=== PATIENT | female | born 1980 | race Caucasian/White ===

== ENCOUNTER 2022-02-06 09:10 | Outpatient (CLI) | payer OTHER, SELFPAY ==
[2022-02-06 14:24] LABS: Chloride* 106 mmol/L (96-114); Potassium* 4.3 mmol/L (3.6-5.1); Sodium* 139 mmol/L (135-149)
[2022-02-06 14:26] LABS: Cholesterol* 184 mg/dL (90-199)
[2022-02-06 14:27] LABS: Blood Urea Nitrogen* 14 mg/dL (5-24); Carbon Dioxide* 22 mmol/L (20-32); Creatinine* 0.7 mg/dL (0.5-1.5); Estimated Glomerular Filt Rate 111 ml/min; Glucose* 84 mg/dL (60-115)
[2022-02-06 14:28] LABS: Calcium* 9.2 mg/dL (8.4-10.6); HDL Cholesterol* 49 mg/dL (>=50); LDL Cholesterol Calculated 116 mg/dL (<100); Triglycerides* 94 mg/dL (40-149)
== END 2022-02-06 09:11 | disposition home or self-care (01) ==
PROVIDERS: PCP Family Medicine; Visit Provider Family Medicine
DX: Z01.419 Encounter for gynecological examination (general) (routine) without abnormal findings (principal); D56.9 Thalassemia, unspecified; K21.9 Gastro-esophageal reflux disease without esophagitis; Z13.6 Encounter for screening for cardiovascular disorders
CPT/HCPCS: 80048; 80061

== ENCOUNTER 2022-04-28 16:46 | Emergency (ER) | payer OTHER, SELFPAY ==
--- NOTE | 2022-04-28 18:54 | ED.NURSE ---
pt declined to be seen by MD. signed form.
== END 2022-04-28 19:09 | disposition left against medical advice (07) ==
LOC: ED 19:04
PROVIDERS: PCP Family Medicine
DX: Z53.21 Procedure and treatment not carried out due to patient leaving prior to being seen by health care provider (principal)

== ENCOUNTER 2022-08-05 08:32 | Outpatient (CLI) | payer OTHER, SELFPAY ==
--- NOTE | 2022-08-05 09:15 | CRLHL7_ITS ---
For Patients: As a result of the Century Cures Act, medical imaging exams and procedure reports are released immediately into your electronic medical record. You may view this report before your referring provider. If you have questions, please contact your health care provider. BILATERAL SCREENING MAMMOGRAM WITH COMPUTER-AIDED DETECTION AND TOMOSYNTHESIS TECHNIQUE: CC and MLO views were obtained. These mammographic images have been obtained using full-field digital technique. These mammographic images were interpreted with the benefit of computer-aided detection. Breast Tomosynthesis was used in this interpretation. COMPARISON FILM: 04/24/21. FINDINGS: The breasts are almost entirely fatty IMPRESSION: There is no radiographic evidence for malignancy. ASSESSMENT: BI-RADS Category 1: Negative RECOMMENDATION: Routine screening mammogram in 1 year. A lay language report of this examination will be provided to the patient. Axel Barfield M.D. Diagnostic Radiologist [email or web address] BIPIN/Dictated by: Axel Barfield MD @ 08/05/2022 12:24:00 PM (Electronically Signed)
== END 2022-08-05 08:33 | disposition home or self-care (01) ==
LOC: MAMMO 08:35
PROVIDERS: PCP Family Medicine; Visit Provider Family Medicine
DX: Z12.31 Encounter for screening mammogram for malignant neoplasm of breast (principal)
CPT/HCPCS: 77063; 77067

== ENCOUNTER 2023-06-02 07:47 | Outpatient (CLI) | payer OTHER, SELFPAY ==
--- NOTE | 2023-06-02 08:15 | MR_ITS ---
[address] [address] Phone:?[phone] Fax:?[phone] Referring Physician Information: HAYDER Vernon [address] [facility] [address] Phone:?[phone] Fax:?[phone] Patient:?Yulisa Gonzalez D.O.B:?1980 Sex:?Female Phone:?[phone] [facility] MRN:?[id number] Exam Date:?06/02/2023 EXAM: MRI of the RIGHT ELBOW, without contrast CLINICAL: Female, 42 years old, with lateral right elbow pain. INDICATION: Evaluate for lateral epicondylosis versus other elbow derangement etiology. PRIOR SURGERY: None reported. PLAIN FILMS: 04/07/2023 radiographic series of the right elbow. COMPARISONS: No prior MRIs available. TECHNICAL: Using a 1.5T MR scanner and a localizing surface coil: 3.0 mm?sagittals: PD, T2 3.0 mm?coronals: T1, PD, T2, STIR 3.0 mm?axials: PD, T2 SEDATION: None. CONTRAST: None. IMPRESSION: 1. Tendinopathy and relatively high-grade deep surface and intrasubstance partial tear of the common extensor tendon origin with potential to be associated with any clinical presentation of lateral epicondylosis. 2. Otherwise unremarkable right elbow MRI. 3. No osteochondral abnormalities. 4. No ligament injuries. 5. No other musculotendinous abnormalities. 6. No pathologic effusion. FINDINGS: Elbow joint: Effusion: Physiologic. Ganglion cyst: None. Radiohumeral plica: No pathologic thickening or enlargement. Osteochondral surfaces: No osteochondral abnormality. Loose bodies: No demonstrable loose bodies. Bursae: No pathologic olecranon or bicipitoradial bursal thickening/bursitis. Bones: Humerus: No fracture, osteochondritis dissecans or marrow edema/pathology. Radius: No fracture or marrow edema. Ulna: No fracture or marrow edema. Ligaments: Medial ulnar collateral: Anterior and posterior bundles of the medial ulnar collateral ligament are intact, without sprain or disruption. Radial collateral proper: Normal. Lateral ulnar collateral: Normal. Myotendinous structures: Biceps: Intact, without tendinopathy or tear. Triceps: Intact posterior tendinous and anterior muscular insertions and lateral aponeurotic component, without tear, tendinopathy or strain. Brachialis: No tear, tendinopathy, or strain. Supinator: No strain/tear. Forearm extensors: There appears tendinopathy and early high-grade although subtotal partial tear of the common extensor tendon origin at the lateral humeral epicondyle (coronal STIR series 6, images 8-10; axial T2 series 4.2, images 15-17). Forearm flexors: No tear, tendinopathy, or strain. Nerves: Ulnar: Normal, without appreciable edema, thickening or mass. No anconeus epitrochlearis accessory muscle over the cubital tunnel. Median: Normal. Radial: Normal. [facility] Electronically signed on 06/02/2023 11:01:00 AM by Efraín Nugent M.D.
== END 2023-06-02 07:48 | disposition home or self-care (01) ==
LOC: MRI 07:49
PROVIDERS: PCP Family Medicine; Visit Provider Physician Assistant Surgical
DX: M25.521 Pain in right elbow (principal); M77.11 Lateral epicondylitis, right elbow
CPT/HCPCS: 73221

== ENCOUNTER 2023-08-07 07:51 | Outpatient (CLI) | payer OTHER, SELFPAY ==
--- NOTE | 2023-08-07 08:15 | MM_ITS ---
Patient: SILVIA BEE Facility:?[facility] Patient ID:?[id number] Site Patient ID:?[id number] Site :?1980 Study:?XRay-Breast Bilateral 3D W/CAD-08/07/2023 9:31:12 AM Ordering Physician:Spenser Final Report: BILATERAL SCREENING MAMMOGRAM WITH COMPUTER-AIDED DETECTION AND TOMOSYNTHESIS TECHNIQUE: CC and MLO views were obtained. These mammographic images have been obtained using full-field digital technique. These mammographic images were interpreted with the benefit of computer-aided detection. Breast Tomosynthesis was used in this interpretation. COMPARISON FILM: 08/05/22, 04/24/21. FINDINGS: The breasts are almost entirely fatty. IMPRESSION: There is no radiographic evidence for malignancy. ASSESSMENT: BI-RADS Category 1: Negative RECOMMENDATION: Routine screening mammogram in 1 year. A lay language report of this examination will be provided to the patient. Axel Barfield M.D. Diagnostic Radiologist [email or web address] DSM/sp R& Transcribed: 5:31 p.m. SP/Dictated by: Axel Barfield MD @ 08/07/2023 9:44:00 AM SP/Dictated by: Axel Barfield MD @ 08/07/2023 9:44:00 AM Signed by:?Axel Barfield MD @08/07/2023 5:39:55 PM (Electronic Signature)
== END 2023-08-07 07:52 | disposition home or self-care (01) ==
LOC: MAMMO 07:51
PROVIDERS: PCP Family Medicine; Visit Provider Family Medicine
DX: Z12.31 Encounter for screening mammogram for malignant neoplasm of breast (principal)
CPT/HCPCS: 77063; 77067

== ENCOUNTER 2024-09-06 08:14 | Outpatient (CLI) | payer OTHER, SELFPAY ==
--- NOTE | 2024-09-06 08:15 | CRLHL7_ITS ---
For Patients: As a result of the Century Cures Act, medical imaging exams and procedure reports are released immediately into your electronic medical record. You may view this report before your referring provider. If you have questions, please contact your health care provider. INDICATION: BILATERAL SCREENING MAMMOGRAM, ASYMPTOMATIC 44 Y/O FEMALE COMPARISON: 08/07/23, 08/05/22, 04/24/21 TECHNIQUE: CC and MLO views were obtained. These mammographic images have been obtained using full-field digital technique. These mammographic images were interpreted with the benefit of computer aided detection and tomosynthesis. BREAST COMPOSITION: The breasts are almost entirely fatty. FINDINGS: No suspicious findings. ASSESSMENT: BI-RADS 1 Negative RECOMMENDATION: Annual screening mammogram. A lay language report of this examination will be provided to the patient. Dictated by: Axel Barfield MD @ 09/14/2024 10:35:59 (Electronically Signed)
== END 2024-09-06 08:15 | disposition home or self-care (01) ==
LOC: MAMMO 08:14
PROVIDERS: PCP Family Medicine; Visit Provider Family Medicine
DX: Z12.31 Encounter for screening mammogram for malignant neoplasm of breast (principal)
CPT/HCPCS: 77063; 77067

== ENCOUNTER 2025-05-08 12:00 | Outpatient (CLI) | payer OTHER, SELFPAY | END 2025-05-08 12:01 | disposition home or self-care (01) | LOC: LKVREF 12:01 | PROVIDERS: PCP Family Medicine; Visit Provider Family Medicine | DX: Z00.00 Encounter for general adult medical examination without abnormal findings (principal); K21.9 Gastro-esophageal reflux disease without esophagitis; D56.9 Thalassemia, unspecified; R53.83 Other fatigue | CPT/HCPCS: 80053; 80061; 84443 ==